=== PATIENT | female | born 1955 | race Caucasian/White ===

== ENCOUNTER 2018-06-16 23:58 | Emergency (ER) | payer MEDICAID ==
[2018-06-17 00:49] VITALS: BMI 22.6
--- NOTE | 2018-06-17 00:55 | ED PDOC ---
Arrival/HPI - General Chief Complaint: Trauma Time Seen by Provider: 06/17/18 00:50 Historian: Patient - History of Present Illness Narrative History of Present Illness (Text): 06/17/18 00:52 62 y/o female, pmh including rt. scapular fracture/osteoporosis, nkda, not on any antiplatete or anticoagulant, c/o rt. shoulder pain/hip/lower back pain s/p slipped and fall on the rt. hip/shoulder and back region yesterday. Aching pain , aggravated by movement, no numbness or tingling, no head/neck/back or other extremity injury, no LOC, no nausea/vomiting/diarrhea, no headache, no dizziness , no rash, no other medical or psychological complaints. Past Medical History - Provider Review Nursing Documentation Reviewed: Yes - Past History Past History: No Previous - Infectious Disease Hx of Infectious Diseases: None - Tetanus Immunization Tetanus Immunization: Unknown - Cardiac Hx Cardiac Disorders: No - Pulmonary Hx Respiratory Disorders: No - Neurological Hx Neurological Disorder: No - HEENT Hx HEENT Disorder: No - Renal Hx Renal Disorder: No - Endocrine/Metabolic Hx Endocrine Disorders: No - Hematological/Oncological Hx Blood Disorders: No - Integumentary Hx Dermatological Disorder: No - Musculoskeletal/Rheumatological Hx Back Pain: Yes Other/Comment: "dislocated disc in the back" - Gastrointestinal Hx Gastrointestinal Disorders: No - Genitourinary/Gynecological Hx Genitourinary Disorders: No - Psychiatric Hx Psychophysiologic Disorder: No Hx Depression: No Hx Emotional Abuse: No Hx Physical Abuse: No Hx Substance Use: No - Surgical History Hx Section: Yes Other/Comment: ovarian cyst - Anesthesia Hx Anesthesia: Yes Hx Anesthesia Reactions: No Hx Malignant Hyperthermia: No - Suicidal Assessment Feels Threatened In Home Enviroment: No Family/Social History - Physician Review Nursing Documentation Reviewed: Yes Family/Social History: Unknown Family HX Smoking Status: Never Smoked Hx Alcohol Use: No Hx Substance Use: No Hx Substance Use Treatment: No Allergies/Home Meds Allergies/Adverse Reactions: Allergies No Known Allergies Allergy (Verified 03/25/16 19:38) Home Medications: Home Meds Medication Instructions Recorded Confirmed Risedronate Sodium [Actonel] 15 mg PO DAILY 07/06/15 03/25/16 Calcium Carbonate [Oscal] 1 tab PO DAILY 03/25/16 03/25/16 Review of Systems - Review of Systems Constitutional: absent: Fatigue, Fevers Eyes: absent: Vision Changes ENT: absent: Hearing Changes Respiratory: absent: SOB, Cough Cardiovascular: absent: Chest Pain Gastrointestinal: absent: Abdominal Pain, Nausea, Vomiting Musculoskeletal: Arthralgias, Back Pain, Myalgias. absent: Neck Pain, Joint Swelling Skin: absent: Rash, Pruritis Neurological: absent: Headache, Dizziness Psychiatric: absent: Anxiety, Depression, Suicidal Ideation Physical Exam Vital Signs Temp Pulse Resp BP Pulse Ox 06/17/18 03:00 65 18 135/78 100 06/17/18 00:54 98.5 F 64 18 138/71 100 - Systems Exam Head: Present: Atraumatic, Normocephalic, Other (no facial bony tenderness). No : Tenderness, Contusion, Swelling, Ecchymosis, Abrasion, Laceration Pupils: Present: PERRL Extroacular Muscles: Present: EOMI Conjunctiva: Present: Normal Ears: Present: NORMAL TM, Normal Canal. No: Erythema Mouth: Present: Moist Mucous Membranes Pharnyx: Present: Normal. No: ERYTHEMA, EXUDATE, TONSILS ENLARGED Nose (External): Present: Atraumatic. No: Abrasion, Contusion, Laceration Nose (Internal): Present: Normal Inspection, No Active Bleeding. No: Rhinorrhea , Septal Hematoma, Epistaxis Neck: Present: Normal Range of Motion. No: MIDLINE TENDERNESS, Paraspinal Tenderness, Lymphadenopathy, Trachea Midline Respiratory/Chest: Present: Clear to Auscultation, Good Air Exchange. No: Respiratory Distress, Accessory Muscle Use, Wheezes, Decreased Breath Sounds, Rales, Retracting, Rhonchi, Tachypneic, Tender to Palpation Cardiovascular: Present: Regular Rate and Rhythm, Normal S1, S2. No: Murmurs Abdomen: No: Tenderness, Distention, Peritoneal Signs, Rebound, Guarding Back: Present: Normal Inspection, Paraspinal Tenderness (LS spine region). No: CVA Tenderness, Midline Tenderness, Pain with Leg Raise, Decubitus Ulcer Upper Extremity: Present: Normal Inspection, Other (Rt. shoulder: +ttp on the posterior shoulder region, no deformity, FROM with pain upon active movement, sensation intact, motor 5/5, neurovascular intact. ). No: Cyanosis, Edema Lower Extremity: Present: Normal Inspection, Other (RLE: +ttp on the lateral hip region, no deformity, no shortening, FROM without limitation but with pain upon active movement, no ecchymosis, neurovascular intact. ). No: Edema Neurological: Present: GCS=15, CN II-XII Intact, Speech Normal Skin: Present: Warm, Dry, Normal Color. No: Rashes Psychiatric: Present: Alert, Oriented x 3, Normal Insight, Normal Concentration Medical Decision Making ED Course and Treatment: 06/17/18 00:56 -Toradol IM -LS spine/Rt. hip/pelvis/Rt. shoulder/scapular xray -Observe and reassess 06/17/18 02:59 -LS spine show osteophyte, ER wet read show no obvious fracture or subluxation but there is constipation (last bowel movement today). -Rt. hip/pelvis: ER wet read show no obvious fracture or subluxation -Rt. shoulder and scapular xray: ER wet read show no obvious diplaced fracture or subluxation -Sling and cane given, pt. feels much better, walking and bearing weight, cane for suportive care, discussed with the patient that official result and if there is any discrepancy, then she would be contacted by me later today. -Discharge home with mobic, cane sling, ice compression at home. follow up with your own pmd and orthopedic within 2 days, return to the ER for any new or worsening signs or symptoms. - RAD Interpretation Radiology Orders: 06/17/18 00:51 HIP MIN 2V W/ PELVIS RT [RAD] Stat LS SPINE WITH OBL > 18 YRS OLD [RAD] Stat SCAPULA RIGHT [RAD] Stat SHOULDER RIGHT [RAD] Stat LS spine xray: Date of service: 06/17/2018 PROCEDURE: Radiographs of the Lumbar Spine. HISTORY: fall, pain COMPARISON: None available. FINDINGS: BONES: Alignment appears satisfactory. No acute displaced fracture or subluxation. Multilevel degenerative changes including small anterior osteophyte formation. DISC SPACES: Unremarkable. OTHER FINDINGS: Moderate constipation. IMPRESSION: Degenerative changes. Constipation. Rt. scapular xray: HISTORY: fall COMPARISON: No prior. FINDINGS: BONES: Question irregularity that the inferior scapula which may be related to remote fracture deformity ; correlate clinically . Remainder of the visualized osseous structures appear intact without acute displaced fracture. The distal clavicle and underlying ribs appear intact. JOINTS: No acute dislocation. SOFT TISSUES: Soft tissue swelling. No evidence of radiopaque foreign body. IMPRESSION: Question irregularity involving inferior spur right scapula which may be related to remote fracture deformity. Correlate clinically with physical exam. Soft tissue swelling. Study marked for PA review. -- Rt. shoulder xray: HISTORY: fall COMPARISON: No prior. FINDINGS: BONES: Question irregularity that the inferior scapula which may be related to remote fracture deformity ; correlate clinically . Remainder of the visualized osseous structures appear intact without acute displaced fracture. The distal clavicle and underlying ribs appear intact. JOINTS: No acute dislocation. SOFT TISSUES: Soft tissue swelling. No evidence of radiopaque foreign body. IMPRESSION: Question irregularity involving inferior spur right scapula which may be related to remote fracture deformity. Correlate clinically with physical exam. Soft tissue swelling. Study marked for PA review. --- Rt. hip and pelvis xray: PROCEDURE: Right Hip and pelvis Radiographs. HISTORY: fall COMPARISON: None. FINDINGS: BONES: Normal. No fracture. JOINTS: Normal. SOFT TISSUES: Normal. OTHER FINDINGS: None. IMPRESSION: Normal radiographs of right hip. Carpet Or Rug Layer Helper: Radiologist - Medication Orders Current Medication Orders: Discontinued Medications Ketorolac Tromethamine (Toradol) 60 mg IM STAT STA Stop: 06/17/18 00:52 Last Admin: 06/17/18 01:20 Dose: 60 mg MAR Pain Assessment Document 06/17/18 01:20 AD (Rec: 06/17/18 01:20 AD [id number]) Pain Reassessment Is this a pain reassessment? No Presence of Pain Presence of Pain Yes Description Intensity of Pain at present 10 IM Administration Charges Document 06/17/18 01:20 AD (Rec: 06/17/18 01:20 AD [id number]) Injection Site MAR Injection Site Left Gluteus Darron Charges for Administration # of IM Administrations 1 - PA / NETWORK CONSULTANT / Resident Statement MD/DO has reviewed & agrees with the documentation as recorded. Disposition/Present on Arrival - Present on Arrival Any Indicators Present on Arrival: No History of DVT/PE: No History of Uncontrolled Diabetes: No Urinary Catheter: No History of Decub. Ulcer: No History Surgical Site Infection Following: None - Disposition Have Diagnosis and Disposition been Completed?: Yes Diagnosis: Fall, Arthralgia, Myalgia Disposition: HOME/ ROUTINE Disposition Time: 00:57 Patient Plan: Discharge Condition: IMPROVED Additional Instructions: -Discharge home with mobic, cane sling, ice compression at home. follow up with your own pmd and orthopedic within 2 days, return to the ER for any new or worsening signs or symptoms. Prescriptions: Meloxicam [Mobic] 7.5 mg PO DAILY PRN #10 tab PRN Reason: Other Referrals: Reymundo Valencia MD [Staff Provider] - Follow up with primary Forms: [email or web address] [facility] (Irish), WORK NOTE
[2018-06-17 00:56] VITALS: RESP 18; TEMP 98.5; O2SAT 100
[2018-06-17 04:03] VITALS: BP 135/78; PULSE 65
--- NOTE | 2018-06-17 11:52 | RAD ---
PROCEDURE: Radiographs of the right shoulder Radiographs of the right scapula HISTORY: fall COMPARISON: No prior. FINDINGS: BONES: Question irregularity that the inferior scapula which may be related to remote fracture deformity ; correlate clinically . Remainder of the visualized osseous structures appear intact without acute displaced fracture. The distal clavicle and underlying ribs appear intact. JOINTS: No acute dislocation. SOFT TISSUES: Soft tissue swelling. No evidence of radiopaque foreign body. IMPRESSION: Question irregularity involving inferior spur right scapula which may be related to remote fracture deformity. Correlate clinically with physical exam. Soft tissue swelling. Study marked for PA review.
--- NOTE | 2018-06-17 12:00 | RAD ---
Date of service: 06/17/2018 PROCEDURE: Radiographs of the Lumbar Spine. HISTORY: fall, pain COMPARISON: None available. FINDINGS: BONES: Alignment appears satisfactory. No acute displaced fracture or subluxation. Multilevel degenerative changes including small anterior osteophyte formation. DISC SPACES: Unremarkable. OTHER FINDINGS: Moderate constipation. IMPRESSION: Degenerative changes. Constipation.
--- NOTE | 2018-06-17 13:59 | RAD ---
PROCEDURE: Right Hip and pelvis Radiographs. HISTORY: fall COMPARISON: None. FINDINGS: BONES: Normal. No fracture. JOINTS: Normal. SOFT TISSUES: Normal. OTHER FINDINGS: None. IMPRESSION: Normal radiographs of right hip.
== END 2018-06-17 03:00 | disposition home or self-care (01) ==
LOC: ED 23:58
DX: M79.1 Myalgia (principal); M25.50 Pain in unspecified joint; M81.0 Age-related osteoporosis without current pathological fracture; W01.0XXA Fall on same level from slipping, tripping and stumbling without subsequent striking against object, initial encounter
CPT/HCPCS: 72110; 73010; 73030; 73502; 96372; 99284; J1885

== ENCOUNTER 2018-06-17 22:19 | Emergency (ER) | payer MEDICAID ==
[2018-06-17 22:50] VITALS: TEMP 98.4; BMI 25.4
--- NOTE | 2018-06-17 22:52 | ED PDOC ---
Arrival/HPI - General Time Seen by Provider: 06/17/18 22:35 Historian: Patient - History of Present Illness Narrative History of Present Illness (Text): 06/17/18 22:48 62 y/o female, post menopausal, pmh including rt. shoulder scapular fracture about 2 years ago, nkda, c/o rt. posterior shoulder scapular pain s/p fall yesterday and was seen in the ER. Pt. is here because the rt. shoulder scapular pain is still there, xray reviewed which it was inconclusive and recommend additional advanced imaging and the patient is here in the ER with the shoulder sling. Pt. has no new injury or fall, no night sweat, no other medical or psychological complaints. Past Medical History - Provider Review Nursing Documentation Reviewed: Yes - Past History Past History: No Previous - Infectious Disease Hx of Infectious Diseases: None - Tetanus Immunization Tetanus Immunization: Unknown - Cardiac Hx Cardiac Disorders: No - Pulmonary Hx Respiratory Disorders: No - Neurological Hx Neurological Disorder: No - HEENT Hx HEENT Disorder: No - Renal Hx Renal Disorder: No - Endocrine/Metabolic Hx Endocrine Disorders: No - Hematological/Oncological Hx Blood Disorders: No - Integumentary Hx Dermatological Disorder: No - Musculoskeletal/Rheumatological Hx Back Pain: Yes Other/Comment: "dislocated disc in the back" - Gastrointestinal Hx Gastrointestinal Disorders: No - Genitourinary/Gynecological Hx Genitourinary Disorders: No - Psychiatric Hx Psychophysiologic Disorder: No Hx Depression: No Hx Emotional Abuse: No Hx Physical Abuse: No Hx Substance Use: No - Surgical History Hx Section: Yes Other/Comment: ovarian cyst - Anesthesia Hx Anesthesia: Yes Hx Anesthesia Reactions: No Hx Malignant Hyperthermia: No - Suicidal Assessment Feels Threatened In Home Enviroment: No Family/Social History - Physician Review Nursing Documentation Reviewed: Yes Family/Social History: Unknown Family HX Smoking Status: Never Smoked Hx Alcohol Use: No Hx Substance Use: No Hx Substance Use Treatment: No Allergies/Home Meds Allergies/Adverse Reactions: Allergies No Known Allergies Allergy (Verified 03/25/16 19:38) Home Medications: Home Meds Medication Instructions Recorded Confirmed Risedronate Sodium [Actonel] 15 mg PO DAILY 07/06/15 03/25/16 Calcium Carbonate [Oscal] 1 tab PO DAILY 03/25/16 03/25/16 Review of Systems - Review of Systems Constitutional: absent: Fatigue, Fevers Eyes: absent: Vision Changes ENT: absent: Hearing Changes Respiratory: absent: SOB, Cough Cardiovascular: absent: Chest Pain Gastrointestinal: absent: Abdominal Pain, Nausea, Vomiting Musculoskeletal: Arthralgias. absent: Back Pain Skin: absent: Rash, Pruritis, Skin Lesions Neurological: absent: Headache, Dizziness Psychiatric: absent: Anxiety, Depression, Suicidal Ideation Physical Exam Vital Signs Temp Pulse Resp BP Pulse Ox 06/17/18 22:49 98.4 F 72 18 102/47 L 97 - Systems Exam Head: Present: Atraumatic, Normocephalic Pupils: Present: PERRL Extroacular Muscles: Present: EOMI Conjunctiva: Present: Normal Mouth: Present: Moist Mucous Membranes Neck: Present: Normal Range of Motion Respiratory/Chest: Present: Clear to Auscultation, Good Air Exchange. No: Respiratory Distress, Accessory Muscle Use Cardiovascular: Present: Regular Rate and Rhythm, Normal S1, S2. No: Murmurs Abdomen: No: Tenderness, Distention, Peritoneal Signs Back: Present: Normal Inspection Upper Extremity: Present: Normal Inspection, Other (Rt. shoulder: +ttp on the posterior shoulder blade, no swelling, pain with lt. shoulder movement actively , neurovascular intact. ). No: Cyanosis, Edema Lower Extremity: Present: Normal Inspection. No: Edema Neurological: Present: GCS=15, CN II-XII Intact, Speech Normal, Motor Func Grossly Intact, Gait Normal, Memory Normal Skin: Present: Warm, Dry, Normal Color. No: Rashes Psychiatric: Present: Alert, Oriented x 3, Normal Insight, Normal Concentration Medical Decision Making ED Course and Treatment: 06/17/18 22:52 -Rt. shoulder CT -Observe and reassess 06/18/18 00:37 -Rt. shoulder CT show: 1. No fracture. 2. Incidental/non-acute findings are described above. -Pt. feels well, CD copy provided, all radiology result discussed with the patient. -Discharge home with keep the sling on as needed, copy of CD, keep follow up with your own pmd and orthopedic within 2 days, return to the ER for any new or worsening signs or symptoms. - RAD Interpretation Radiology Orders: 06/17/18 22:53 EXT UPPER W/O CONTRAST RIGHT [CT] Stat Bones/joints: No acute fracture. Chronic deformity body of scapula. Degenerative changes of spine. No dislocation. Soft tissues: Unremarkable. IMPRESSION: 1. No fracture. 2. Incidental/non-acute findings are described above. Thank you for allowing us to participate in the care of your patient. Dictated and Authenticated by: Chau Carlin MD 06/17/2018 11:32 PM Eastern Time ([place] & [place]) Leaf Stamper: Radiologist - PA / WOOD CHOPPER / Resident Statement MD/DO has reviewed & agrees with the documentation as recorded. Disposition/Present on Arrival - Present on Arrival Any Indicators Present on Arrival: No History of DVT/PE: No History of Uncontrolled Diabetes: No Urinary Catheter: No History of Decub. Ulcer: No History Surgical Site Infection Following: None - Disposition Have Diagnosis and Disposition been Completed?: Yes Diagnosis: Shoulder injury Disposition: HOME/ ROUTINE Disposition Time: 00:38 Patient Plan: Discharge Condition: GOOD Additional Instructions: -Discharge home with keep the sling on as needed, copy of CD, keep follow up with your own pmd and orthopedic within 2 days, return to the ER for any new or worsening signs or symptoms. Referrals: Mary Ayers MD [Primary Care Provider] - Follow up with primary Reymundo Valencia MD [Staff Provider] - Follow up with primary Forms: WORK NOTE
[2018-06-18] MEDS ORDERED: Oxycodone/Acetaminophen 5/325 mg Tab PO STA (00:42)
[2018-06-18 01:06] VITALS: BP 114/83; PULSE 69; RESP 19; O2SAT 99
--- NOTE | 2018-06-18 08:50 | CT ---
Date of service: 06/17/2018 PROCEDURE: CT of the right scapula HISTORY: rt. scapular xray concern for fx, history of fx. COMPARISON: X-ray same day TECHNIQUE: Radiation dose: Total exam DLP = 193 mGy-cm. This CT exam was performed using one or more of the following dose reduction techniques: Automated exposure control, adjustment of the mA and/or kV according to patient size, and/or use of iterative reconstruction technique. FINDINGS: There is a mild deformity of the body of the scapula. This is either congenital or the result of a previous fracture. There are no acute fractures seen. Glenohumeral joint and acromioclavicular joints are unremarkable. The report concurs with the preliminary [facility] report IMPRESSION: No acute fracture
== END 2018-06-18 01:10 | disposition home or self-care (01) ==
LOC: ED 22:19
DX: S49.91XA Unspecified injury of right shoulder and upper arm, initial encounter (principal); W19.XXXA Unspecified fall, initial encounter